=== PATIENT | male | born 1935 | race Hispanic/Latino ===

== ENCOUNTER → 2019-04-02 | Outpatient (CLI) | payer OTHER ==
[~2019-04-02] MED LIST: ACET1TAB25 PO; AMLO10TA7 PO; AMOX500C2 PO; CHLO118L5 DT; ENAL20TA PO; IBUP-2076 PO; IOHEXOL-350 75 ML VIAL IV ONE; LEVO5TAB13 PO; PRAV20TA4 PO; VITA150T PO
== END | disposition home or self-care (01) ==
LOC: RAH 10:00
PROVIDERS: ATTEND Internal Medicine Cardiovascular Disease
DX: I65.23 Occlusion and stenosis of bilateral carotid arteries (principal)
CPT/HCPCS: 70498; Q9967

== ENCOUNTER 2019-05-12 07:42 | Day surgery (SDC) | payer OTHER ==
[2019-05-07 11:01] VITALS: BP 148/65
[2019-05-07 11:04] LABS: BASOPHILS % (AUTO) 0.7 % (0.0-5.0); EOSINOPHILS % (AUTO) 1.4 % (0.0-8.0); HEMATOCRIT 41.1 % (42-54); LYMPHOCYTES % (AUTO) 30.4 % (21.0-51.0); MEAN CORPUSCULAR HEMOGLOBIN 31.9 pg (27.0-33.0); MEAN CORPUSCULAR HGB CONC 33.5 g/dL (32.0-36.0); MEAN CORPUSCULAR VOLUME 95.2 fL (79-99); MONOCYTES % (AUTO) 7.3 % (3.0-13.0); NEUTROPHILS % (AUTO) 60.2 % (40.0-77.0); PLATELET COUNT (AUTO) 226 K/uL (130-400); RED BLOOD CELL COUNT(AUTO) 4.31 MIL/uL (4.50-6.20); RED CELL DISTRIBUTION WIDTH 13.2 % (11.0-15.5); WHITE BLOOD COUNT (AUTO) 7.5 K/uL (4.8-10.8)
[2019-05-07 11:15] LABS: CREATININE 1.5 mg/dL (0.5-1.5); POTASSIUM 5.3 mmol/L (3.5-5.1)
[2019-05-07 11:27] LABS: INR 0.92 (0.85-1.15); PARTIAL THROMBOPLASTIN TIME 22.1 SEC (26.3-35.5); PROTHROMBIN TIME 9.7 SEC (9.6-11.6)
--- NOTE | 2019-05-09 16:20 | NUR ---
LABS INFORMED JF CABRERA OF ABNORMAL POTASSIUM/BUN/CREA. ORDERS RECEIVED TO REDRAW BMP ON AM OF SURGERY.
[~2019-05-12] VITALS: Ht 172.7 cm; Wt 75.3 kg
[2019-05-12] VITALS (9 sets, daily range): BP systolic 87–155; BP diastolic 50–74
[~2019-05-12 07:42] MED LIST changes: -ACET1TAB25 PO; -AMOX500C2 PO; +ASPI-555 PO; -CHLO118L5 DT; +FOLI1TAB15 PO; -IBUP-2076 PO; -IOHEXOL-350 75 ML VIAL IV ONE; -LEVO5TAB13 PO; +SODIUM CHLORIDE 0.9% 500ML 500 ML IV SCH; -VITA150T PO
[2019-05-12] MEDS ORDERED: SODIUM CHLORIDE 0.9% 1000ML 1,000 ML IV ONE (08:13)
[2019-05-12 08:41] LABS: CREATININE 1.4 mg/dL (0.5-1.5); POTASSIUM 4.9 mmol/L (3.5-5.1)
--- NOTE | 2019-05-12 10:27 | NUR ---
REPEAT BMP LABS RE DRAWN TODAY, POTASSIUM 4.9, CREAT 1.4 REPORTED TO JF MORENO. NO FURTHER ORDERS GIVEN.
[2019-05-12] MEDS ORDERED: HEPARIN SODIUM 1000UNIT/ML 10ML VIAL ONE (12:57)
[2019-05-12] MEDS ORDERED: SODIUM BICARB 50MEQ 50ML VIAL ONE (12:57)
[2019-05-12] MEDS ORDERED: IODIXANOL 320 MG/ML 100 ML VIAL ONE (12:58)
[2019-05-12] MEDS ORDERED: LIDOCAINE HCL 2% 20ML ONE (12:58)
[2019-05-12] MEDS ORDERED: NITROGLYCERIN 5 MG/ML 10 ML VIAL IV ONE (12:58)
[2019-05-12] MEDS ORDERED: HYDRALAZINE HCL 20 MG/ML VIAL ONE (13:24)
[2019-05-12] MEDS ORDERED: IOHEXOL-350 50ML VIAL IV ONE (13:32)
[2019-05-12] MEDS ORDERED: SODIUM CHLORIDE 0.9% 1000ML 1,000 ML IV SCH (13:46)
--- NOTE | 2019-05-12 14:05 | NUR ---
ASSESS PT NOTED TO HAVE REDNESS/FLUSHING TO FACE AND NECK. PT STATES HE IS ANXIOUS. DENIES SHORTNESS OF BREATH, DENIES PAIN OR CHEST PAIN, DENIES ITCHING OR ANY OTHER SYMPTOMS. PER DAUGHTERS, PT GETS REALLY FLUSHED WHEN HE GETS ANXIOUS, BUT HE IS MORE FLUSHED TODAY THAN USUAL. WILL CONTINUE TO MONITOR PT.
--- NOTE | 2019-05-12 14:35 | NUR ---
ASSESS FLUSHING/REDNESS TO FACE AND NECK APPEARS LESS. PT REMAINS ASYMPTOMATIC.
--- NOTE | 2019-05-12 15:20 | NUR ---
REPORT REPORT GIVEN TO CARROLL Barreto RN. PT STABLE. NO COMPLAINTS MADE. PT CALM AND RELAXED. FLUSHING/REDNESS TO FACE AND NECK SUBSIDED. CATH SITE TO RIGHT GROIN REMAINS SOFT, DRESSING DRY AND INTACT, NO OOZING NO HEMATOMA NOTED. PT STATES HE WILL EAT LATER. PT DUE TO VOID.
--- NOTE | 2019-05-12 16:15 | NUR ---
MD DR. Francisco ROMAN NOTIFIED THAT PTS BP 90'S , HE STATED TO CONTINUE TO MONITOR.
--- NOTE | 2019-05-12 17:00 | NUR ---
BP MELVIN RHOADES NOTIFIED OF PATIENTS BP TRENDS FROM 87/58- 90/50 , FURTHER ORDERS GIVEN AND WILL BE CARRIED OUT
[2019-05-12] MEDS ORDERED: SODIUM CHLORIDE 0.9% 500ML 500 ML IV ONE (17:20)
--- NOTE | 2019-05-12 18:05 | NUR ---
dc dc instructions given to pt s spouse with rx, instructed to f/u with dr naveed sanchez , to continue home meds. and on new med. pt spouse and daughter verbalized understanding. right groin with dressing dry and intact, no hematoma or bleeding noted to site. NS 500cc bolus completed earlier, bp now 134/72
--- NOTE | 2019-05-12 18:15 | NUR ---
dc pt dc home via wc, no distress noted. denied any pain or discomforts. right groin dressing dry and intact, no hematoma or bleeding noted accompanied by family
== END 2019-05-12 18:15 | disposition home or self-care (01) ==
LOC: DAH 07:42
PROVIDERS: ATTEND Internal Medicine Cardiovascular Disease
DX: I65.23 Occlusion and stenosis of bilateral carotid arteries (principal); I10 Essential (primary) hypertension; E78.5 Hyperlipidemia, unspecified; F41.9 Anxiety disorder, unspecified; Z79.899 Other long term (current) drug therapy; Z79.01 Long term (current) use of anticoagulants; Z87.891 Personal history of nicotine dependence; Z82.49 Family history of ischemic heart disease and other diseases of the circulatory system; Z83.3 Family history of diabetes mellitus; Z98.890 Other specified postprocedural states
CPT/HCPCS: 36223; 36226; 36415 ×2; 71045; 80048 ×2; 85025; 85610; 85730; 93005; A4606; C1760; C1769; C1894; J0360; J1644; J3490 ×3; J7030; J7040; Q9967 ×2; 75710

== ENCOUNTER 2019-07-08 05:40 | Day surgery (SDC) | payer OTHER ==
[2019-07-04 15:38] VITALS: BP 153/63
[2019-07-04 15:40] LABS: APPEARANCE,URINE Clear (CLEAR); BILIRUBIN,URINE Negative (NEGATIVE); COLOR,URINE Yellow (YELLOW); GLUCOSE, URINE (UA) Negative (NEGATIVE); KETONES,URINE Negative (NEGATIVE); LEUKOCYTE ESTERASE ,URINE Negative (NEGATIVE); NITRATE,URINE Negative (NEGATIVE); OCCULT BLOOD,URINE Trace (NEGATIVE); PROTEIN,URINE Negative (NEGATIVE); UROBILINOGEN,URINE 0.2 mg/dL (0.2-1.0)
[2019-07-04 15:45] LABS: BASOPHILS % (AUTO) 0.6 % (0.0-5.0); HEMATOCRIT 40.1 % (42-54); LYMPHOCYTES % (AUTO) 29.1 % (21.0-51.0); MEAN CORPUSCULAR HEMOGLOBIN 32.2 pg (27.0-33.0); MEAN CORPUSCULAR HGB CONC 33.7 g/dL (32.0-36.0); MEAN CORPUSCULAR VOLUME 95.6 fL (79-99); MONOCYTES % (AUTO) 6.7 % (3.0-13.0); NEUTROPHILS % (AUTO) 61.6 % (40.0-77.0); NUCLEATED RED BLOOD CELLS 0.1 % (0.0-0.19); PLATELET COUNT (AUTO) 240 K/uL (130-400); RED BLOOD CELL COUNT(AUTO) 4.19 MIL/uL (4.50-6.20)
[2019-07-04 15:47] LABS: CREATININE 1.4 mg/dL (0.5-1.5); POTASSIUM 5.1 mmol/L (3.5-5.1)
[2019-07-04 15:49] LABS: BACTERIA,URINE None Seen /HPF (None Seen); MUCUS,URINE None Seen LPF (None Seen); SQUAMOUS EPITHELIAL CELL,UR 0-2 /HPF (0-2); WBC,URINE 0-1 /HPF (0-1)
[2019-07-04 15:51] LABS: INR 0.95 (0.85-1.15); PARTIAL THROMBOPLASTIN TIME 24.8 SEC (26.3-35.5)
--- NOTE | 2019-07-07 12:15 | NUR ---
CONTRAST IODINE ALLERGY/ABNORMAL LABS ABNORMAL LABS REPORTED TO JF MORENO SODIUM 132, CREAT 1.4. NO FURTHER ORDERS GIVEN FOR ABNORMAL LABS. ALSO INFORMED MELVIN THAT PT IS ALLERGIC TO CONTRAST IODINE, WAS GIVEN A RX FROM OFFICE FOR PREMED TO TAKE 2 DAYS PRIOR TO PROCEDURE. ORDERS FOR TO GIVE SOLU MEDROL 125 MG IVP AND BENADRYL 50 MG IVP BIOCHEMICAL ENGINEER TO CARTOGRAPHY/MAPPING TECHNICIAN.
[~2019-07-08] VITALS: Ht 172.7 cm; Wt 77.9 kg
[~2019-07-08 05:40] MED LIST changes: +CLOP75TA32 PO; +DIPH25TA22 PO; +DiphenhydrAMINE HCL 50 MG/ML VIAL IVP SCH; +METHYLPREDNISOLONE SOD SUCC 125MG/2ML VIAL IVP SCH; +PRED20TA3 PO; +RANI-655 PO; -SODIUM CHLORIDE 0.9% 500ML 500 ML IV SCH
[2019-07-08] MEDS ORDERED: SODIUM CHLORIDE 0.9% 1000ML 1,000 ML IV SCH (08:00)
[2019-07-08 22:32] VITALS: BP 136/61
== END 2019-07-08 12:00 | disposition home or self-care (01) ==
LOC: DAH 05:40 → DAHIP 05:40 → UNDOADMIN 05:40 → DAH 12:00 → EDSTATUS 13:00
PROVIDERS: ATTEND Internal Medicine Cardiovascular Disease
DX: I65.23 Occlusion and stenosis of bilateral carotid arteries (principal); M19.90 Unspecified osteoarthritis, unspecified site; F41.9 Anxiety disorder, unspecified; I10 Essential (primary) hypertension; E78.5 Hyperlipidemia, unspecified; F10.21 Alcohol dependence, in remission; Z79.82 Long term (current) use of aspirin; Z87.891 Personal history of nicotine dependence; Z88.3 Allergy status to other anti-infective agents; Z79.899 Other long term (current) drug therapy; Z98.890 Other specified postprocedural states; Z82.49 Family history of ischemic heart disease and other diseases of the circulatory system; Z83.3 Family history of diabetes mellitus
CPT/HCPCS: 36415; 71045; 80048; 81001; 85025; 85610; 85730; 86850; 86900; 86901; 86922; 93005; G0378

== ENCOUNTER 2019-07-30 09:00 | Inpatient (IN) | payer OTHER ==
[~2019-07-30] VITALS: Ht 167.6 cm; Wt 77.6 kg
[~2019-07-30 09:00] MED LIST changes: -DiphenhydrAMINE HCL 50 MG/ML VIAL IVP SCH; -METHYLPREDNISOLONE SOD SUCC 125MG/2ML VIAL IVP SCH; -RANI-655 PO
[2019-07-30 10:36] LABS: BASOPHILS % (AUTO) 0.6 % (0.0-5.0); HEMATOCRIT 39.5 % (42-54); MEAN CORPUSCULAR HEMOGLOBIN 31.9 pg (27.0-33.0); MEAN CORPUSCULAR HGB CONC 33.9 g/dL (32.0-36.0); MEAN CORPUSCULAR VOLUME 94.1 fL (79-99); MONOCYTES % (AUTO) 6.8 % (3.0-13.0); NEUTROPHILS % (AUTO) 72.6 % (40.0-77.0); PLATELET COUNT (AUTO) 238 K/uL (130-400); RED BLOOD CELL COUNT(AUTO) 4.19 MIL/uL (4.50-6.20); RED CELL DISTRIBUTION WIDTH 13.1 % (11.0-15.5); WHITE BLOOD COUNT (AUTO) 7.9 K/uL (4.8-10.8)
[2019-07-30 10:38] LABS: APPEARANCE,URINE Clear (CLEAR); BILIRUBIN,URINE Negative (NEGATIVE); COLOR,URINE Yellow (YELLOW); GLUCOSE, URINE (UA) Negative (NEGATIVE); KETONES,URINE Negative (NEGATIVE); LEUKOCYTE ESTERASE ,URINE Negative (NEGATIVE); NITRATE,URINE Negative (NEGATIVE); OCCULT BLOOD,URINE Trace (NEGATIVE); PROTEIN,URINE Negative (NEGATIVE); UROBILINOGEN,URINE 0.2 mg/dL (0.2-1.0)
[2019-07-30 10:43] LABS: CREATININE 1.3 mg/dL (0.5-1.5)
[2019-07-30 10:49] LABS: INR 0.94 (0.85-1.15); PARTIAL THROMBOPLASTIN TIME 24.9 SEC (26.3-35.5); PROTHROMBIN TIME 9.9 SEC (9.6-11.6)
[2019-07-30 11:02] LABS: BACTERIA,URINE Rare /HPF (None Seen); RBC,URINE 0-1 /HPF (0-1); SQUAMOUS EPITHELIAL CELL,UR Rare /HPF (0-2); WBC,URINE None Seen /HPF (0-1)
--- NOTE | 2019-07-30 12:20 | NUR ---
SPOKE TO JF CHARLES. ADVISED HIM OF PT HISTORY OF ANAPHYLAXIS TO IV IODINE FOR CONTRAST. ORDERED BENADRYL 50MG IV AND SOLUMEDROL 125MG IV PORTFOLIO CONSULTANT TO [facility]. WILL ALSO CALL IN RX FOR PO BENADRYL AND PREDNISONE TO PT'S PHARMACY. ALSO OKAYED USE OF PREVIOUS CHEST XRAY FROM 07-07-19. NO NEW CHEST XRAY NEEDED.
[2019-07-30 12:38] VITALS: BP 163/66
--- NOTE | 2019-07-31 13:31 | NUR ---
LABS ABNORMAL LABS REPORTED TO MELVIN RHOADES, NO FURTHER ORDERS GIVEN AT THIS TIME
[2019-08-01] VITALS (43 sets, daily range): BP systolic 116–153; BP diastolic 43–73
[2019-08-01] MEDS ORDERED: SODIUM CHLORIDE 0.9% 1000ML 1,000 ML IV ONE (05:52)
[2019-08-01] MEDS ORDERED: DiphenhydrAMINE HCL 50 MG/ML VIAL ONE (05:52)
[2019-08-01] MEDS ORDERED: METHYLPREDNISOLONE SOD SUCC 125MG/2ML VIAL ONE (05:55)
--- NOTE | 2019-08-01 07:00 | NUR ---
POTENTIAL FOR INFECTION: SHAVED FROM NECK TO BILATERAL LEGS ABOVE KNEE PER DORI UMANZOR, FOLLOWED BY WIPING WITH LUZ: 2% CHLORHEXIDINE GLUCONATE CLOTH PATIENTS PRE-OP SKIN PREP>
[2019-08-01] MEDS ORDERED: METHYLPREDNISOLONE SOD SUCC 125MG/2ML VIAL IVP PRN (08:00)
[2019-08-01] MEDS ORDERED: DiphenhydrAMINE HCL 50 MG/ML VIAL IVP PRN (08:00)
[2019-08-01] MEDS ORDERED: SODIUM CHLORIDE 0.9% 1000ML 1,000 ML IV SCH (08:00)
[2019-08-01] MEDS ORDERED: VASOPRESSIN 20 UNITS/ML 1ML VIAL ONE (10:12)
[2019-08-01] MEDS ORDERED: BACITRACIN 50,000 UNIT VIAL ONE (10:13)
[2019-08-01] MEDS ORDERED: IODIXANOL 320 MG/ML 100 ML VIAL ONE (10:26)
[2019-08-01] MEDS ORDERED: HEPARIN SODIUM 1000UNIT/ML 10ML VIAL ONE (10:26)
[2019-08-01] MEDS ORDERED: MIDAZOLAM HCL 1 MG/ML 2ML VIAL ONE (10:28)
[2019-08-01] MEDS ORDERED: ONDANSETRON HCL 4 MG/2 ML VIAL ONE (10:29)
[2019-08-01] MEDS ORDERED: ROCURONIUM 10MG/1ML SYR 10 MG/ML ML ONE (10:32)
[2019-08-01] MEDS ORDERED: IPRA0.2S54 IH (10:53)
[2019-08-01] MEDS ORDERED: OXYM-40 NS (10:53)
[2019-08-01] MEDS ORDERED: CEFAZOLIN SODIUM 1 GM VIAL ONE (11:15)
[2019-08-01] MEDS ORDERED: ONDANSETRON HCL 4 MG/2 ML VIAL IVP PRN (12:45)
[2019-08-01] MEDS ORDERED: ACETAMINOPHEN-CODEINE 300/30MG TAB PO PRN (12:45)
--- NOTE | 2019-08-01 13:30 | NUR ---
POST PROCEDURE Received to room 212 post procedure. Pt drowsy but arousable on arrival - focuses and follows commands. Denies pain. SR on tele. VS as recorded. Received pt on IV levophed gtt @6.96mcg/min infusing via 18ga PIV to LPF. SL to LAC. Left radial arterial line patent with acceptable waveform. PIV to LPF without signs of infiltration. Left neck drsg clean and dry without evidence of hematoma, bleeding/oozing. Right groin without evidence of bleeding/oozing or hematoma. Procedural access site with dry gauze/tegaderm drsg in place. BLE's cool to touch. Weak bilateral pedal pulses. Pt made aware of activity restrictions post procedure - will need reenforcement. Assessment completed/recorded. Pt positioned for comfort. HOB @15-degrees. Side rails up for safety. Pt is due to void post procedure.
--- NOTE | 2019-08-01 13:45 | NUR ---
BP MANAGEMENT IV levophed gtt titrated to 8mcg/min.
[2019-08-01] MEDS: IPRATROPIUM 0.5 MG/2.5 ML INH IH SCH ×2 (14:01→21:24)
--- NOTE | 2019-08-01 14:02 | NUR ---
smoking assessment: pt states he smoked < pk/day off & on for ~ 20 years Addendum: 08/01/19 at 1405 by RENE CHATTERJEE RT Amended: Links added.
--- NOTE | 2019-08-01 14:25 | NUR ---
MD UPDATE notified of pt admission.
--- NOTE | 2019-08-01 14:35 | NUR ---
FAMILY UPDATE Pt's family members in to see pt - updated. Pt awake and interacting appropriately with family. Questions addressed.
[2019-08-01] MEDS: PHENYLEPHRINE HCL 10 MG in SODIUM CHLORIDE 0.9% 250 ML IV PRN ×2 (15:31→19:14)
[2019-08-01] MEDS: SODIUM CHLORIDE 0.9% 1000ML 1,000 ML IV SCH (15:32)
--- NOTE | 2019-08-01 15:33 | NUR ---
BP MANAGEMENT Persistent IBP less than parameters. IV neosynephrine gtt initiated @25mcg/min. Will observe pt tolerance and wean off IV levophed gtt if able.
--- NOTE | 2019-08-01 16:35 | NUR ---
ASSESSMENT No acute changes in overall assessment. SR on tele. VS maintained. IV levophed gtt@2mcg/min, Neosynephrine gtt @45mcg/min. Pt briskly alert, oriented and appropriate. No focal neuro deficits noted. Right groin assessment unchanged. Pt is in no apparent distress. Reassured.
[2019-08-01] MEDS: CEFAZOLIN SODIUM 1 GM VIAL IVP SCH (19:13)
[2019-08-01] MEDS: OXYMETAZOLINE HCL SPRAY 15 ML BOTTLE NS SCH (20:25)
[2019-08-01] MEDS ORDERED: FAMOTIDINE 20MG TAB 20 MG TAB ONE (20:37)
[2019-08-01] MEDS ORDERED: SIMVASTATIN 10 MG TABLET PO SCH (21:00)
[2019-08-01] MEDS ORDERED: ENALAPRIL MALEATE 10 MG TABLET PO SCH (21:00)
[2019-08-01] MEDS ORDERED: ASPIRIN 81 MG EC TAB PO SCH (21:00)
[2019-08-01] MEDS ORDERED: PHARMACY COMMUNICATION MISC SCH (21:00)
[2019-08-02] VITALS (24 sets, daily range): BP systolic 122–158; BP diastolic 49–75
[2019-08-02] MEDS: SODIUM CHLORIDE 0.9% 1000ML 1,000 ML IV SCH (01:55)
[2019-08-02] MEDS: CEFAZOLIN SODIUM 1 GM VIAL IVP SCH (03:11)
[2019-08-02 04:19] LABS: HEMATOCRIT 35.5 % (42-54); MEAN CORPUSCULAR HEMOGLOBIN 32.1 pg (27.0-33.0); MEAN CORPUSCULAR HGB CONC 33.8 g/dL (32.0-36.0); MEAN CORPUSCULAR VOLUME 94.8 fL (79-99); NUCLEATED RED BLOOD CELLS 0.1 % (0.0-0.19); PLATELET COUNT (AUTO) 231 K/uL (130-400); RED BLOOD CELL COUNT(AUTO) 3.74 MIL/uL (4.50-6.20); RED CELL DISTRIBUTION WIDTH 13.3 % (11.0-15.5); WHITE BLOOD COUNT (AUTO) 14.1 K/uL (4.8-10.8)
[2019-08-02 04:27] LABS: CREATININE 1.4 mg/dL (0.5-1.5); POTASSIUM 4.6 mmol/L (3.5-5.1)
[2019-08-02] MEDS: IPRATROPIUM 0.5 MG/2.5 ML INH IH SCH ×2 (06:32→14:36)
--- NOTE | 2019-08-02 08:15 | NUR ---
ASSESSMENT AAO, appropriate. No focal neuro deficits noted on assessment. SR on tele. VS as recorded. Denies pain. Denies SOB. On room air. Breath sounds are clear throughout. Abd slightly distended with hypoactive bowel sounds. Denies acute abd pain or nausea. Pt belching but not passing gas. Reports chronic constipation. Right groin without evidence of hematoma. Drsg to right groin remains clean and dry. Weak pedal pulses. PIV's remain patent/intact. IVF's off. Assessment completed/recorded. No complaints voiced by pt. Tentative plan of care discussed. Questions addressed.
--- NOTE | 2019-08-02 08:30 | NUR ---
ACTIVITY Ambulated in hallway without difficulty. Pt did report feeling "tired" after ambulation. Pt remains OOB in cardiac chair post ambulation. Needed items within reach.
[2019-08-02] MEDS ORDERED: CLOPIDOGREL BISULFATE 75 MG TAB PO SCH (09:00)
[2019-08-02] MEDS ORDERED: AMLODIPINE BESYLATE 5 MG TAB PO SCH (09:00)
[2019-08-02] MEDS ORDERED: FAMOTIDINE 20MG TAB 20 MG TAB PO SCH (09:00)
[2019-08-02] MEDS ORDERED: FOLIC ACID 1 MG TABLET PO SCH (09:00)
--- NOTE | 2019-08-02 09:40 | NUR ---
STATUS Family members in to see pt - updated. Questions addressed. Pt remains OOB in chair. No complaints voiced by pt.
[2019-08-02] MEDS: OXYMETAZOLINE HCL SPRAY 15 ML BOTTLE NS SCH (09:58)
--- NOTE | 2019-08-02 12:20 | NUR ---
ASSESSMENT No acute changes in overall assessment. SR on tele. VS maintained. Family members remain at bedside.
--- NOTE | 2019-08-02 14:30 | NUR ---
STATUS Pt and family members made aware of planned discharge. No complaints or concerns voiced by pt.
[2019-08-02] MEDS ORDERED: POLY17PO4 PO (14:51)
--- NOTE | 2019-08-02 16:00 | NUR ---
DISCHARGE INSTRUCTIONS Discharge instructions reviewed with pt, family members at bedside. Although pt does understand [place]ian, his comfort level is higher with instructions in [place]. Information largely discussed with pt's eldest daughter, Harika Denise, who in turn discussed information with her dad. Pt did acknowledge understanding of information discussed. Pt's spouse was also at bedside at time of instructions. Questions addressed. Pt has follow up appointments with both and his PCP next week according to . Pt instructed on incisional care, primarily that he is to leave incision untouched as ordered by . Pt, family aware of activity limitations post procedure, primarily in regards to strenuous activity. 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 Pt aware of restrictions regarding heavy lifting - aware that he is not to lift anything heavier than 5 pounds until cleared by . Additional instructions discussed regarding activation of EMS in the event of s/s of stroke - pt's daughter states pt has previous experienced TIA's on multiple occasions and is aware of need for emergent care. states she will be assisting pt in home after discharge.
--- NOTE | 2019-08-02 16:22 | NUR ---
DISCHARGE Discharged to home with family members. No complaints voiced by pt at time of discharge.
== END 2019-08-02 16:20 | disposition home or self-care (01) | DRG 36 ==
LOC: DAHIP 08-01 05:30 → EDSTATUS 08-01 09:00 → 2CV 08-01 10:46
PROVIDERS: ADMIT Internal Medicine; ATTEND Internal Medicine
PROC: 037L3DZ Dilation of Left Internal Carotid Artery with Intraluminal Device, Percutaneous Approach (ICD-10-PCS; principal; 2019-08-01 08:30)
PROC: B314YZZ Fluoroscopy of Left Common Carotid Artery using Other Contrast (ICD-10-PCS; 2019-08-01 08:30)
PROC: B317YZZ Fluoroscopy of Left Internal Carotid Artery using Other Contrast (ICD-10-PCS; 2019-08-01 08:30)
DX: I65.29 Occlusion and stenosis of unspecified carotid artery (principal); E78.1 Pure hyperglyceridemia; I11.9 Hypertensive heart disease without heart failure; K21.9 Gastro-esophageal reflux disease without esophagitis; Z79.899 Other long term (current) drug therapy; Z79.02 Long term (current) use of antithrombotics/antiplatelets; Z86.73 Personal history of transient ischemic attack (TIA), and cerebral infarction without residual deficits
CPT/HCPCS: 36415; 37215; 80048; 81001; 85025; 85027; 85347; 85610; 85730; 86850; 86900; 86901; 86922; 93005; 94640; 94664; C1725; G0378; J0690; J1200; J1644; J2250; J2370; J2405; J2930; J3490; J7030; J7040; Q9967